=== PATIENT | male | born 1950 | race Caucasian/White ===

== ENCOUNTER → 2022-04-08 | Outpatient (CLI) | payer MEDICARE, OTHER ==
[~2022-04-08] MED LIST: BARIUM SULFATE 40% (APPLE) 148 GM PWD. PO ONE
--- NOTE | 2022-04-08 13:44 | RAD ---
Exam: Video Swallowing Study History: Dysphagia Comparison: None Procedure: Video fluoroscopy of the neck was performed from the lateral projection following ingesti on of various consistency barium which was administered by the speech pathologist. Fluoroscopy time: 1.1 minutes Total saved images/series: 0 Findings/ Impression: Laryngeal penetration: None Aspiration: None Please see speech pathology's report for further details of examination. Electronically signed by: Srinivas Fitch MD (04/08/2022 1:42 PM) [id number]
== END ==
LOC: RAD 12:13
PROVIDERS: ATTEND Family Medicine
DX: R13.12 Dysphagia, oropharyngeal phase (principal)
CPT/HCPCS: 74230; 92611-GN